=== PATIENT | female | born 1965 | race Caucasian/White ===

== ENCOUNTER 2025-02-14 09:04 | Day surgery (SDC) | payer OTHER, SELFPAY ==
--- OUTSIDE RECORDS SUMMARY | 2025-01-26 18:20 | XMS_ITS | Clinical Summary ---
Author Organization [facility] Address [address] [place] [id number] Care Team Providers Care Nailing Machine Operator Name Role Phone Randall Munoz MD Primary Care Provider [phone] Allergies No known active allergies Medications Medication Sig Dispensed Refills Start Date End Date Status traZODone (DESYREL) 50 MG tablet Take 50 mg by mouth every night at bedtime as needed. 3 05/13/2017 Active Family History Medical History Relation Name Comments Cancer Father Relation Name Status Comments Father Social History Tobacco Use Types Packs/Day Years Used Date Smoking Tobacco: Never Assessed Sex and Gender Information Value Date Recorded Sex Assigned at Not on file Gender Identity Not on file Sexual Orientation Not on file Job Start Date Occupation Industry Not on file Not on file Not on file Last Filed Vital Signs Vital Sign Reading Time Taken Comments Blood Pressure - - Pulse - - Temperature - - Respiratory Rate - - Oxygen Saturation - - Inhaled Oxygen Concentration - - Weight 73.9 kg (163 lb) 01/03/2022 10:33 AM EDT Height 167.6 cm (5' 6 ) 01/03/2022 10:33 AM EDT Body Mass Index 26.31 01/03/2022 10:33 AM EDT Plan of Treatment Health Maintenance Due Date Last Done Comments Hepatitis C Screening 1965 Depression Screening 1975 BMI Counseling 12/10/1981 Preventative Health Evaluation 12/10/1981 DTap / Tdap / Td (1 - Tdap) 12/10/1982 Cervical Cancer Screening (Pap Smear) 12/10/1984 Colon Cancer Screening (Colonoscopy) 12/10/2008 Breast Cancer Screening (Mammogram) 12/10/2013 Shingrix-Zoster Vaccine (1 o f 2) 12/10/2013 COVID-19 Vaccine (4 - 2024-2 6 season) 2025 04/27/2021, 06/23/2020, 06/02/2020 Influenza Vaccine (#1) 2025 0, 03/24/2018, 02/09/2017 RSV Adult > 60+ Yrs or (1 - 1-dose 75+ series) 12/10/2038 Hepatitis B Vaccines Aged Out No long er eligible based on patient's age to complete this topic Pneumococcal Vaccine Aged Out No long er eligible based on patient's age to complete this topic RSV Ped < 20 months Aged Out No longe r eligible based on patient's age to complete this topic Care Teams Nailing Machine Operator Relationship Specialty Start Date End Date Randall Munoz MD [address] [place] [id number] PCP - General Internal Medicine 06/03/17
--- OUTSIDE RECORDS SUMMARY | 2025-01-26 18:20 | XMS_ITS | Clinical Summary ---
Author Organization [address] [place] [address] [address] [place] [address] Phone Care Team Providers Care Pipe Fitter Apprentice Name Role Phone Randall Munoz MD Primary Care Provider [phone] Allergies No known active allergies Medications METOPROLOL SUCCINATE ORAL Take by mouth. Active clonazePAM (KlonoPIN) 0.5 mg tablet Take 1 Tablet by mouth 2 times daily as needed. Active traZODone (DESYREL) 50 mg tablet Take 50 mg by mouth at bedtime. Active Active Problems Problem Noted Date Diagnosed Date Allergic rhinitis 03/15/2024 Irritable bowel syndrome 03/15/2024 Migraine 03/15/2024 Raynaud's syndrome 03/15/2024 Inappropriate sinus tachycardia (CMS/HCC V24) PFO (patent foramen ovale) 01/28/2024 Abnormal Holter exam 01/21/2024 Chest pain 01/21/2024 Palpitations 01/21/2024 Immunizations Name Administration Dates Next Due COVID-19 (Moderna/Spikevax) 12yo and older 03/02 Surgical History Surgery Date Site/Laterality Comments APPENDECTOMY PROCEDURE: HISTORICAL APPENDECTOMY Medical History Medical History Date Comments Raynaud's syndrome DX:Raynaud's syndrome Migraine DX:Migraine Irritable bowel syndrome DX:Irri table bowel syndrome Allergic rhinitis DX:Allergic rh initis History of colonic polyps DX:His tory of colonic polyps Family History Medical History Relation Name Comments Colon cancer Father Relation Name Status Comments Father Mother Alive Social History Tobacco Use Types Packs/Day Years Used Date Smoking Tobacco: Former Smokeless Tobacco: Never Alcohol Use Standard Drinks/Week Comments Yes 0 (1 standard drink = 0.6 oz pur e alcohol) Comments Unknown Sex and Gender Information Value Date Recorded Sex Assigned at Not on file Legal Sex Female 11:22 PM EST Gender Identity Not on file Sexual Orientation Not on file Obstetrics History Last Filed Vital Signs Vital Sign Reading Time Taken Comments Blood Pressure 137/81 04/25/2024 10:54 AM EST Pulse 71 01/28/2024 8:41 AM EDT Temperature - - Respiratory Rate - - Oxygen Saturation - - Inhaled Oxygen Concentration - - Weight 69.4 kg (153 lb) 04/25/2024 10:54 AM EST Height 167.6 cm (5' 6 ) 04/25/2024 10:54 AM EST Body Mass Index 24.69 04/25/2024 10:54 AM EST Plan of Treatment Health Maintenance Due Date Last Done Comments Breast Cancer Screening 1965 Cervical Cancer Screening: Pap Smear 12/10/1984 Pneumococcal Vaccine: 50+ Years (1 of 1 - PCV) 12/10/2013 Zoster Vaccines (1 of 2) 12/10/2013 HIV Screening 04/20/2022 Hepatitis C Screening 04/20/2022 Social Influencers of Health Screening 04/20/2022 Depression Screening 05/18/2024 DTaP,Tdap,and Td Vaccines (2 - Td or Tdap) 07/24/2024 07/24/2014 COVID-19 Vaccine ( season) 2025 02/08/2023, 03/02/2022, 09/29/2021, Additional history exists Influenza Vaccine (#1) 2025 3, 02/11/2020, 02/09/2020, Additional history exists Colorectal Cancer Screening: Colonoscopy 05/02/2026 05/02/2016 RSV Immunization Adult Patients (1 - 1-dose 75+ series) 12/10/2038 HIB Vaccines Aged Out No longer eligi ble based on patient's age to complete this topic HPV Vaccines Aged Out No longer eligi ble based on patient's age to complete this topic Hepatitis A Vaccines Aged Out No long er eligible based on patient's age to complete this topic Hepatitis B Vaccines Aged Out No long er eligible based on patient's age to complete this topic IPV Vaccines Aged Out No longer eligi ble based on patient's age to complete this topic MMR Vaccines Aged Out No longer eligi ble based on patient's age to complete this topic Meningococcal ACWY Vaccine Aged Out N o longer eligible based on patient's age to complete this topic Meningococcal B Vaccine Aged Out No l onger eligible based on patient's age to complete this topic RSV Immunization Patients Under 20 months Aged Out No longer eligible based on patient's age to complete this topic Varicella Vaccines Aged Out No longer eligible based on patient's age to complete this topic Procedures Procedure Name Priority Date/Time Associated Diagnosis Comments COLONOSCOPY Routine 05/02/2016 from Last 3 Months or Most Recently Relevant to Health Maintenance Results * Colonoscopy (05/02/2016) Colonoscopy Abstracted, no interpretation Anatomical Region Laterality Modality Other Historical Provider HEALTH MAINTENANCE Final Result from Last 3 Months or Most Recently Relevant to Health Maintenance Insurance [facility] MEDICAID ADVANTAGE Care Teams Pipe Fitter Apprentice Relationship Specialty Start Date End Date Randall Munoz MD [address] [place] [id number] PCP - General Internal Medicine 11/03/17
--- OUTSIDE RECORDS SUMMARY | 2025-01-26 18:20 | XMS_ITS | Patient Health Record ---
Author Organization [facility] Address [address] [place] [address] Care Team Providers Care Paper Goods Machine Set Up Operator Name Role Phone Randall Munoz Primary Care Provider Tyree Sparks Jr Unavailable Allergies No Known Allergies Reason For Referral No Information Medications Medication SIG (Take, Route, Frequency, Duration) Notes Start Date End Date Status Pantoprazole Sodium Not-Taking Centrum Ultra Womens Not-Taking Zolpidem Tartrate No t-Taking traZODone HCl Not-Ta james Citalopram Hydrobromide 10 MG 1 tablet Orally daily Active Tylenol Active clonazePAM 0.5 MG 1 tablet Orally Once a day Active Omeprazole 10 MG 1 capsule 1/2 to 1 h our before morning meal Orally Once a day Active Social History Tobacco Use: Social History Observation Description Date Details (start date - stop date) Former Smoker NA - NA Tobacco Use/Smoking Question Answer Notes Patient is a former smoker When did you stop smoking? 2 years ago How long has it been since you last smoked? 1-5 years AUDIT-C (Standard) Question Answer Notes Did you have a drink contain ing alcohol in the past year? Yes How often did you have a dri nk containing alcohol in the past year? Daily or almost daily (4 points) How many drinks did you have on a typical day when you were drinking in the past year? 3 or 4 drinks (1 point) How often did you have six o r more drinks on one occasion in the past year? Never (0 point) Points 5 Interpretation Positive Problems Problem Type SNOMED Code ICD Code Onset Dates Problem Status W/U Status Risk Notes Problem Screening for malignant neoplasm of colon (780926778) Encounter for screening for malignant neoplasm of colon (Z12.11) Active confirmed Problem 95770815 Peptic ulcer disease (K27.9) Active confirmed Vital Signs Temperature 98.6 degrees Fahrenheit 01/26/2025 Blood pressure diastolic 01 mm Hg 01/26/2025 Height 65.5 in 01/26/2025 Blood pressure systolic 001 mm Hg 01/26/2025 Weight 151.0 lbs 01/26/2025 BMI 24.74 kg/m2 01/26/2025 Encounters Encounter Location Date Provider Diagnosis [facility] [address] [place] [address] 01/26/2025 Tyree Rodríguez Jr Peptic ulcer disease K27.9 and Encounter for screening for malignant neoplasm of colon Z12.11 Assessments Encounter Date Diagnosis (ICD Code) Assessment Notes Treatment Notes Treatment Clinical Notes Section Notes 01/26/2025 Encounter for screening for malignant neoplasm of colon (ICD-10 - Z12.11) 01/26/2025 Peptic ulcer disease (ICD-10 - K27.9) Plan Of Treatment Future Test Test Name Order Date UPPER GI ENDOSCOPY 01/26/2025 COLONOSCOPY 01/26/2025 Next Appt Details Provider Name:Tyree iqbal Jr, 02/14/2025 10:50:00 AM, [address] [facility] , [place], [place], [id number], Insurance Providers Payer Name Payer Address Payer Phone Subscriber Number Group Number Insured Name Patient Relationship to Insured Coverage Start Date Coverage End Date [facility] [address] [place] [address] [phone] [id number] ROMEO CLIFTON Self - patient is the insured 3 MEDICAID OF [facility] [address] [place] [phone] [id number] ROMEO CLIFTON Self - patient is the insured Medical (General) History Medical History History ICD Code gastroesophageal reflux dise ase/peptic ulcer disease, EGD showing 2 antral ulcers in October 2019, followup showed healing in January. anxiety lump in right breast colonoscopy 02/04 negative for polyps, fi ve-year followup 02/09. Surgical History Surgery Date(Month/Year) Bilateral Hip Surgery Hernia Repair - belly button Bunions - both feet
[2025-02-13 07:11] VITALS: BMI 25.1
--- NOTE | 2025-02-13 09:11 | HO.ANESPROP2 ---
Documented by User: Rebecca Moctezuma NP 02/13/25 09:12 HPI - Anesthesia Eval Consult details Narrative: 59yo F for Upper Endoscopy and Colonoscopy [facility] Past Medical History Medical History Breast lump Anxiety GERD (gastroesophageal reflux disease) Peptic ulcer Surgical History Surgical History Hx of umbilical hernia repair History of repair of both hip joints History of bunionectomy H/O colonoscopy History of esophagogastroduodenoscopy (EGD) Social History Social History Patient Tobacco Use Status: Former Tobacco user Have you been hit, kicked, punched, or otherwise hurt by someone within the past year? If so, by whom?: No Are you DNR?: No Advance Directives: No Advance Directives Information Provided: Yes Poor oral hygiene: No Meds Allergies Allergy/AdvReac Type Severity Reaction Status Date / Time No Known Allergies Allergy Verified 02/14/25 09:29 Home Medications ?Medication ?Instructions ?Recorded ?Confirmed ?Last Taken ?Type acetaminophen 325 mg tablet 650 mg PO Q6H PRN Pain 02/13/25 02/13/25 Unknown History citalopram 10 mg tablet 10 mg PO DAILY 02/13/25 02/13/25 Unknown History clonazepam 0.5 mg tablet 0.5 mg PO BID PRN anxiety 02/13/25 02/13/25 Unknown History rkaftmxc-gqqc-icee 8 mg-folic 400 1 tab PO DAILY 02/13/25 02/13/25 Unknown History mcg-K 50 mcg-lutein 300 mcg tablet (Centrum [place] Women) omeprazole 10 mg capsule,delayed 10 mg PO DAILY 02/13/25 02/13/25 Unknown History release Exam Height,Weight and Vital Signs: Height 5 ft 5 in Weight 68.492 kg Assessment and Plan Assessment Anesthesia Assessment: Chart Reviewed Documented by User: Tomas Moralez MD 02/14/25 10:51 [facility] Past Medical History Medical History Breast lump Anxiety GERD (gastroesophageal reflux disease) Peptic ulcer Functional capacity: independent ambulation Family History Family history of problems with anesthesia: No Surgical History Surgical History Hx of umbilical hernia repair History of repair of both hip joints History of bunionectomy H/O colonoscopy History of esophagogastroduodenoscopy (EGD) History of Problems with Anesthesia: No Social History Social History Patient Tobacco Use Status: Former Tobacco user Have you been hit, kicked, punched, or otherwise hurt by someone within the past year? If so, by whom?: No Are you DNR?: No Advance Directives: No Advance Directives Information Provided: Yes Poor oral hygiene: No Meds Allergies Allergy/AdvReac Type Severity Reaction Status Date / Time No Known Allergies Allergy Verified 02/14/25 09:29 Home Medications ?Medication ?Instructions ?Recorded ?Confirmed ?Last Taken ?Type acetaminophen 325 mg tablet 650 mg PO Q6H PRN Pain 02/13/25 02/13/25 Unknown History citalopram 10 mg tablet 10 mg PO DAILY 02/13/25 02/13/25 Unknown History clonazepam 0.5 mg tablet 0.5 mg PO BID PRN anxiety 02/13/25 02/13/25 Unknown History iqfphqxt-xynq-zyav 8 mg-folic 400 1 tab PO DAILY 02/13/25 02/13/25 Unknown History mcg-K 50 mcg-lutein 300 mcg tablet (Centrum [place] Women) omeprazole 10 mg capsule,delayed 10 mg PO DAILY 02/13/25 02/13/25 Unknown History release Exam Exam Date and Time: 02/14/2025 Airway Mallampati Class: II Loose/Missing/Broken Teeth: No Heart: rrr Lungs: cta Assessment and Plan Assessment Anesthesia Assessment: Anesthesia Plan Discussed Final Anesthetic Review Family History of Problems with Anesthesia: No History of Problems with Anesthesia: No NPO: Yes ASA Class: II Final Preanesthetic Review: No Changes in Pt Med Stat, Meds/Allgs Chart Reviewed and Anes Risks/Benef Reviewed Patient Risk: Low Procedure Risk: Low Anesthetic Plan Anesthetic Plan: MAC: Disposition: Standard PACU
[2025-02-14 09:28] VITALS: BMI 24.8
[2025-02-14] MEDS: Lactated Ringers 1,000 ML 100 ML IVCONT (09:33)
[2025-02-14 09:47] VITALS: BP 121/88; PULSE 63; RESP 18; TEMP 36.6; O2SAT 100
--- NOTE | 2025-02-14 10:00 | MHC.SHP ---
Pre-Procedural Eval Section A - 24 Hr Update-Section A only Date of Service: 02/14/25 The patient is an INPATIENT: No Changes since office visit: No Cold of Flu in the past 2 weeks, No New Medical Problems, No Changes in Medication and No Patient answered all questions The patient has been examined within 24 hours of the surgical procedure. The History & Physical has been completed within 30 days and I have reviewed it.: Yes Section B - Complete if H&P > 30 days Chief Complaint: Peptic ulcer,screening Allergies: Allergies Allergy/AdvReac Type Severity Reaction Status Date / Time No Known Allergies Allergy Verified 02/14/25 09:29 Plan I have reviewed the history and physical and performed a pertinent physical examination on my patient. No changes have occurred unless specified. Time Spent With Patient Time: Total time managing care of this patient today ____ minutes.
[2025-02-14 11:35] VITALS: BP 119/73; PULSE 64; RESP 16; TEMP 36.6; O2SAT 99
[2025-02-14 11:50] VITALS: BP 130/85; PULSE 64; RESP 16; TEMP 36.7; O2SAT 99
--- NOTE | 2025-02-14 14:39 | OP_ITS ---
DATE OF SERVICE: 02/14/2025 SURGEON: Tyree Rodríguez MD INDICATIONS: 1. Gastroesophageal reflux disease. 2. Colon cancer screening. PREOPERATIVE DIAGNOSIS: POSTOPERATIVE DIAGNOSIS: PROCEDURE PERFORMED: 1. Upper endoscopy with biopsy, colonoscopy to the terminal ileum. ESTIMATED BLOOD LOSS: COMPLICATIONS: ANESTHESIA: Medications; monitored anesthesia care. ASSISTANTS: SPECIMENS: DESCRIPTION OF PROCEDURE: A history and physical performed. The risks and benefits of the procedure were explained to the patient. Informed consent was obtained. The patient was placed in the left lateral decubitus position. The Olympus video gastroscope was introduced into the esophagus, stomach, and duodenum. Examination was performed. The scope was removed. She was repositioned for colonoscopy. A digital rectal exam was performed and was found to be normal. The Olympus pediatric video colonoscope was introduced into the rectum and advanced to the cecum. The cecum was identified by transillumination, palpation, and identification of ileocecal valve. Examination was performed and the scope was removed. She tolerated both procedures well and was returned to recovery area in stable condition. FINDINGS: Upper endoscopy: 1. Esophagus: The esophagus showed an irregular EG junction. This was biopsied. 2. Stomach: Stomach showed no evidence of masses, ulcers, or polyps. Antral biopsies were obtained. 3. Duodenum: The bulb and 2nd portion were normal. Colonoscopy: The terminal ileum was examined and appeared normal. Visualized colonic mucosa was within normal limits without evidence of masses or ulcers. No polyps were identified. The quality of the prep was good. Retroflexed examination showed small internal hemorrhoids. IMPRESSION: 1. Gastroesophageal reflux disease and history of peptic ulcer disease. 2. Normal colonoscopy. RECOMMENDATION: 1. Follow up the biopsy results. 2. Repeat colonoscopy is recommended in 5 years because of family history of colon polyps. MD CARLITO Diaz/DARRYNL / [id number]
== END 2025-02-14 12:36 | disposition home or self-care (01) ==
PROVIDERS: PCP Internal Medicine; Visit Provider Internal Medicine Gastroenterology
PROC: (CPT 45378; principal; 2025-02-14 10:50)
DX: Z12.11 Encounter for screening for malignant neoplasm of colon (principal); Z83.719 Family history of colon polyps, unspecified; K64.8 Other hemorrhoids; K21.9 Gastro-esophageal reflux disease without esophagitis; Z87.11 Personal history of peptic ulcer disease; K22.89 Other specified disease of esophagus; K29.70 Gastritis, unspecified, without bleeding
CPT/HCPCS: 45378; 43239; 88305; 88313; 88342; J2003; J2704; J3010